=== PATIENT | female | born 1990 | race Caucasian/White ===

== ENCOUNTER 2016-04-25 11:19 | Emergency (ER) | payer OTHER ==
[2016-04-25 11:26] VITALS: BP 139/84; PULSE 96; TEMP 98.1; BMI 43.8
--- NOTE | 2016-04-25 11:38 | PDOC ---
History of Present Illness - General Chief Complaint: Pain Stated Complaint: LEFT RIBCAGE PAIN Time Seen by Provider: 04/25/16 11:21 History Source: Patient Exam Limitations: No Limitations - History of Present Illness Initial Comments: 04/25/16 11:37 This is a 25 yo F presenting to the ER with a complaint of rib cage pain. Pt reports left midaxial chest wall pain x 3-4 days. Pt awoke with her symptoms, states pain is worse with deep breath Pain is positional No recent cough or cold symptoms No chest pain, jaw, arm pain No sob No fevers or chills No ill contacts No neck swelling No trauma PMH: Pseudotumor PSH: denies Meds:Diamox ALL: NKDA Social: GENERAL/CONSTITUTIONAL: No: fever, chills, weakness, loss of appetite. HEAD, EYES, EARS, NOSE AND THROAT: No: Throat pain CARDIOVASCULAR: Yes: chest wall pain No: lightheadedness, palpitations, syncope RESPIRATORY: No: cough, shortness of breath, wheezing, hemoptysis, stridor. GASTROINTESTINAL: No: nausea, vomiting, diarrhea, abdominal cramping, rectal bleeding, constipation. GENITOURINARY: No: dysuria, hematuria, frequency, urgency, flank pain. MUSCULOSKELETAL: Yes: chest wall pain No: back pain, neck pain SKIN: No: lesions, pallor, rash or easy bruising. NEUROLOGIC: No: headache, vertigo, paresthesias, weakness ENDOCRINE: No: unexplained weight gain or loss HEMATOLOGIC/LYMPHATIC: No: anemia, easy bleeding, swelling nodes. GENERAL: The patient is in no acute distress. HEAD: Normal with no signs of trauma. EYES: PERRLA, EOMI, sclera anicteric, conjunctiva clear. ENT: Ears normal, nares patent, oropharynx clear without exudates. Moist mucous membranes. NECK: Normal range of motion, supple without lymphadenopathy, JVD, or masses. LUNGS: Breath sounds equal, clear to auscultation bilaterally. No wheezes, and no crackles. HEART:Regular rate and rhythm, normal S1 and S2 without murmur, rub or gallop. ABDOMEN: Soft, nontender, normoactive bowel sounds. No guarding, no rebound. No masses palpable. EXTREMITIES: Normal range of motion, no edema. No clubbing or cyanosis. No erythema, or tenderness. NEUROLOGICAL: Cranial nerves II through XII grossly intact. Normal speech. No focal neurological deficits. MUSCULOSKELETAL: Chest wall non tender to palpation SKIN: Warm, Dry, normal turgor, no rashes or lesions noted. 04/25/16 11:38 04/25/16 11:50 04/25/16 11:57 Past History - Past Medical History Allergies/Adverse Reactions: Allergies Allergy/AdvReac Type Severity Reaction Status Date / Time gluten Allergy Verified 04/25/16 11:20 No Known Drug Allergies Allergy Verified 04/25/16 11:20 Home Medications: Ambulatory Orders Acetazolamide [Diamox -] 150 mg PO BID 04/25/16 Methocarbamol [Robaxin -] 500 mg PO TID PRN #21 tablet 04/25/16 Naproxen [Naprosyn -] 500 mg PO BID PRN #14 tablet 04/25/16 Anemia: No Asthma: No Cancer: No Cardiac Disorders: No CVA: No COPD: No CHF: No Dementia: No Diabetes: No GI Disorders: No Disorders: No HTN: No Hypercholesterolemia: No Liver Disease: No Seizures: No Thyroid Disease: No Other medical history: PSEUDOTUMOR - Surgical History Abdominal Surgery: No Appendectomy: No Cardiac Surgery: No Cholecystectomy: No Lung Surgery: No Neurologic Surgery: No Orthopedic Surgery: No - Psycho/Social/Smoking Cessation Hx Anxiety: No Suicidal Ideation: No Smoking History: Current some day smoker Have you smoked in the past 12 months: Yes Number of Cigarettes Smoked Daily: 1 If you are a former smoker, when did you quit?: 1 YEAR AGO Information on smoking cessation initiated: Yes 'Breaking Loose' booklet given: 04/25/16 Hx Alcohol Use: No Drug/Substance Use Hx: No *Physical Exam - Vital Signs Last Vital Signs Temp Pulse Resp BP Pulse Ox 98.1 F 96 H 18 139/84 100 04/25/16 11:20 04/25/16 11:20 04/25/16 11:20 04/25/16 11:20 04/25/16 11:20 Medical Decision Making - Medical Decision Making 04/25/16 11:59 Pt is low risk wells: No Clinical signs/symptoms of DVT, PE is not the number 1 diagnosis, Heart rate < 100, No Immobilization at least 3 days OR surgery in the Previous 4 weeks, No diagnosed PE or DVT, No Hemoptysis, No Malignancy w/ treatment within 6 months or palliative Perc negative : Age < 50, HR < 100, O2 Sat on room air > 95%, No p rior history of DVT/PE, No recent trauma or surgery, No Hemoptysis, No Exogenous estrogen, No unilateral leg swelling No risk factors or exertional symptoms to suggest Cardiac ischemia Will check Hcg Will do CXR Will give motrin 04/25/16 13:14 CXR negative I have explained to patient that we can send a D dimer now Pt is not concerned about additional blood test or imaging Pt states she would like to go home I have ordered her pain medications Follow up with Dr Araujo Return to the ER for any other concerns or complaints *DC/Admit/Observation/Transfer Diagnosis at time of Disposition: Chest pain Qualifiers: Chest pain type: unspecified Qualified Code(s): R07.9 - Chest pain, unspecified - Discharge Dispostion Disposition: HOME Condition at time of disposition: Improved Admit: No - Prescriptions Prescriptions: Naproxen [Naprosyn -] 500 mg PO BID PRN #14 tablet PRN Reason: Pain Methocarbamol [Robaxin -] 500 mg PO TID PRN #21 tablet PRN Reason: Pain - Patient Instructions Printed Discharge Instructions: DI for Atypical Chest Pain, DI for Chest Pain Additional Instructions: Inga Thank you for coming in to the ER today Please return to the ER for any other concerns or complains Follow up with Dr Araujo within 1 week
[2016-04-25] MEDS ORDERED: IBUPROFEN 600 MG TABLET (FP) PO ONE ×2 (12:12→12:20)
[2016-04-25 12:14] LABS: PH,URINE 7.5 (4.5-8); URINE BILIRUBIN Negative (NEGATIVE); URINE BLOOD Negative (NEGATIVE); URINE GLUCOSE (UA) Negative (NEGATIVE); URINE KETONE Negative (NEGATIVE); URINE NITRITE Negative (NEGATIVE); URINE PROTEIN Trace (NEGATIVE); URINE UROBILINOGEN 0.2 E.U/dl (0.2-1.0)
[2016-04-25 12:15] LABS: URINE APPEARANCE CLOUDY; URINE COLOR YELLOW
[2016-04-25 12:17] LABS: URINE LEUK ESTERASE TRACE (NEGATIVE)
[2016-04-25 12:43] LABS: URINE BACTERIA FEW /hpf (NEGATIVE); URINE HYALINE CAST 0-3 /lpf; URINE RBC 0-3 /hpf (0-3); URINE WBC 0-3 (3-5)
== END 2016-04-25 13:38 | disposition home or self-care (01) ==
LOC: FER 11:19
DX: R07.9 Chest pain, unspecified (principal); F17.210 Nicotine dependence, cigarettes, uncomplicated
CPT/HCPCS: 71020-TC; 81003; 81015; 84703; 87086; 99284-25

== ENCOUNTER 2016-09-16 10:45 | Inpatient (IN) | payer MEDICARE, OTHER ==
[2016-09-16] MEDS ORDERED: FAMOTIDINE 20 MG/50 ML IVPB 50 ML IVPB ONE (10:47)
[2016-09-16] MEDS ORDERED: ONDANSETRON 4 MG/2 ML VIAL IVPUSH ONE (10:47)
[2016-09-16] MEDS ORDERED: morphine CARPU-JECT 4 MG/1 ML DISP.SYRIN IVPUSH ONE ×2 (10:47→11:19)
[2016-09-16] MEDS ORDERED: SODIUM CHLORIDE 1,000 ML IV STA ×2 (10:47→13:23)
--- NOTE | 2016-09-16 10:47 | PDOC ---
History of Present Illness - General History Source: Patient Exam Limitations: No Limitations - History of Present Illness Initial Comments: 25 yo F history gluten intolerance, GERD presents with abrupt onset epigastric abdominal pain, N/V since the middle of the night. She has vomited multiple times nonbilious, nonbloody. She has had epigastric pain in the past when she eats gluten, but this is different. The pain is much more severe, and she has vomited multiple times. Denies f/c, diarrhea. No recent illness, no bad food ingestion, no sick contacts. <Whit Hernandes - Last Filed: 09/16/16 15:23> <Macy Valdez - Last Filed: 09/16/16 15:25> - General Chief Complaint: Pain Stated Complaint: ABD PAIN Time Seen by Provider: 09/16/16 10:47 Past History - Past Medical History Anemia: No Asthma: No Cancer: No Cardiac Disorders: No CVA: No COPD: No CHF: No Dementia: No Diabetes: No GI Disorders: No Disorders: No HTN: No Hypercholesterolemia: No Liver Disease: No Seizures: No Thyroid Disease: No - Surgical History Abdominal Surgery: No Appendectomy: No Cardiac Surgery: No Cholecystectomy: No Lung Surgery: No Neurologic Surgery: No Orthopedic Surgery: No - Psycho/Social/Smoking Cessation Hx Anxiety: No Suicidal Ideation: No Smoking History: Current some day smoker Have you smoked in the past 12 months: Yes Number of Cigarettes Smoked Daily: 1 If you are a former smoker, when did you quit?: 1 YEAR AGO 'Breaking Loose' booklet given: 04/25/16 Hx Alcohol Use: No Drug/Substance Use Hx: No <Whit Hernandes - Last Filed: 09/16/16 15:23> <Macy Valdez - Last Filed: 09/16/16 15:25> - Past Medical History Allergies/Adverse Reactions: Allergies Allergy/AdvReac Type Severity Reaction Status Date / Time gluten Allergy Verified 09/16/16 10:46 No Known Drug Allergies Allergy Verified 09/16/16 10:46 Home Medications: Ambulatory Orders Acetazolamide [Diamox -] 450 mg PO BID 04/25/16 Review of Systems - Review of Systems Able to Perform ROS?: Yes Comments:: GENERAL/CONSTITUTIONAL: No fever or chills. No weakness. HEAD, EYES, EARS, NOSE AND THROAT: No change in vision. No ear pain or discharge. No sore throat. CARDIOVASCULAR: No chest pain or shortness of breath. RESPIRATORY: No cough, wheezing, or hemoptysis. GASTROINTESTINAL: +Nausea, vomiting. No diarrhea or constipation. GENITOURINARY: No dysuria, frequency, or change in urination. MUSCULOSKELETAL: No joint or muscle swelling or pain. No neck or back pain. SKIN: No rash NEUROLOGIC: No headache, vertigo, loss of consciousness, or change in strength/ sensation. ENDOCRINE: No increased thirst. No abnormal weight change. HEMATOLOGIC/LYMPHATIC: No anemia, easy bleeding, or history of blood clots. ALLERGIC/IMMUNOLOGIC: No hives or skin allergy. <Whit Hernandes - Last Filed: 09/16/16 15:23> *Physical Exam - Physical Exam Comments: GENERAL: Awake, alert, and fully oriented, appears in obvious pain. HEAD: No signs of trauma EYES: PERRLA, EOMI, sclera anicteric, conjunctiva clear ENT: Auricles normal inspection, hearing grossly normal, nares patent, oropharynx clear without exudates. Dry mucosa NECK: Normal ROM, supple, no lymphadenopathy, JVD, or masses LUNGS: Breath sounds equal, clear to auscultation bilaterally. No wheezes, and no crackles HEART: Regular rate and rhythm, normal S1 and S2, no murmurs, rubs or gallops ABDOMEN: Soft, tender to epigastric area with guarding, no rebound. + Hyperactive bowel sounds. No masses EXTREMITIES: Normal range of motion, no edema. No clubbing or cyanosis. No cords, erythema, or tenderness NEUROLOGICAL: Cranial nerves II through XII grossly intact. Normal speech, normal gait SKIN: Cool and clammy. Normal turgor, no rashes or lesions noted. Mild pallor. <Whit Hernandes - Last Filed: 09/16/16 15:23> - Vital Signs Last Vital Signs Temp Pulse Resp BP Pulse Ox 97.4 F L 52 L 18 119/86 100 09/16/16 10:45 09/16/16 10:45 09/16/16 10:45 09/16/16 11:00 09/16/16 10:45 <Macy Valdez - Last Filed: 09/16/16 15:25> ED Treatment Course - LABORATORY CBC & Chemistry Diagram: 09/16/16 10:50 09/16/16 10:50 <Whit Hernandes - Last Filed: 09/16/16 15:23> - LABORATORY CBC & Chemistry Diagram: 09/16/16 10:50 09/16/16 10:50 - ADDITIONAL ORDERS Additional order review: Laboratory Results 09/16/16 09/16/16 10:50 10:50 Sodium 137 Potassium 4.2 Chloride 111 H Carbon Dioxide 18 L Anion Gap 8 BUN 9 Creatinine 0.9 Creat Clearance w eGFR > 60 Random Glucose 151 H Calcium 9.3 Total Bilirubin 0.8 AST 27 ALT 17 Alkaline Phosphatase 91 Total Protein 7.6 Albumin 4.2 Lipase 33 Serum , Qual Negative Urine Color Yellow Urine Appearance Clear Urine pH 8.5 H Ur Specific [place] 1.015 Urine Protein Negative Urine Glucose (UA) Negative Urine Ketones 1+ H Urine Blood Negative Urine Nitrite Negative Urine Bilirubin Negative Urine Urobilinogen 0.2 e.u/dl Ur Leukocyte Esterase Negative 09/16/16 10:50 RBC 4.87 MCV 61.7 L MCHC 30.4 L RDW 17.8 H MPV 8.4 Neutrophils % Y Lymphocytes % Y - Medications Given in the ED: ED Medications Discontinued Medications Generic Name Dose Route Start Last Admin Trade Name Freq PRN Reason Stop Dose Admin Famotidine/Sodium Chloride 50 mls @ 100 mls/hr 09/16/16 10:47 09/16/16 11:04 Pepcid 20 Mg Premixed Ivpb - IVPB 09/16/16 11:16 100 mls/hr ONCE ONE Administration Sodium Chloride 1,000 mls @ 1,000 mls/hr 09/16/16 10:47 09/16/16 11:00 Normal Saline - IV 09/16/16 11:46 1,000 mls/hr ASDIR STA Administration Sodium Chloride 1,000 mls @ 1,000 mls/hr 09/16/16 13:23 09/16/16 13:25 Normal Saline - IV 09/16/16 14:22 1,000 mls/hr ASDIR STA Administration Morphine Sulfate 4 mg 09/16/16 10:47 09/16/16 11:00 Morphine Injection - IVPUSH 09/16/16 10:48 4 mg ONCE ONE Administration Morphine Sulfate 4 mg 09/16/16 11:19 07/11/17 11:22 Morphine Injection - IVPUSH 09/16/16 11:20 4 mg ONCE ONE Administration Ondansetron HCl 4 mg 09/16/16 10:47 09/16/16 10:55 Zofran Injection IVPUSH 09/16/16 10:48 4 mg ONCE ONE Administration <Macy Valdez - Last Filed: 09/16/16 15:25> Medical Decision Making - Medical Decision Making 09/16/16 11:38 Noted to have leukocytosis on CBC. Will prepare to obtain CT. 09/16/16 13:22 Pt states pain has improved. Awaiting CT. <Whit Hernandes - Last Filed: 09/16/16 15:23> - Medical Decision Making 09/16/16 15:24 Dr. Romeo was paged at his office requesting a call back for surgical consult on this patient at 15:12 Dr. Romeo returned the call and the patient's case was discussed at 15:20 <Macy Valdez - Last Filed: 09/16/16 15:25> *DC/Admit/Observation/Transfer - Discharge Dispostion Admit: Yes <Whit Hernandes - Last Filed: 09/16/16 15:23> <Macy Valdez - Last Filed: 09/16/16 15:25> Diagnosis at time of Disposition: Appendicitis, acute Qualifiers: Acute appendicitis type: with localized peritonitis Qualified Code(s): K35.3 - Acute appendicitis with localized peritonitis - Discharge Dispostion Condition at time of disposition: Stable
[2016-09-16 11:19] LABS: MCHC 30.4 g/dl (32.0-36.0); MEAN CELL VOLUME 61.7 fl (80-96); MEAN PLT VOLUME 8.4 fl (7.5-11.1); PLATELET COUNT 247 K/MM3 (134-434); RDW 17.8 % (11.6-15.6); WHITE BLOOD COUNT 17.4 K/mm3 (4.0-10.8)
[2016-09-16 11:20] LABS: MCH 18.8 pg (25.7-33.7)
[2016-09-16 11:35] LABS: ALBUMIN 4.2 g/dl (3.5-5.0); ALK PHOS 91 U/L (32-92); ANION GAP 8 (8-16); BILIRUBIN,TOTAL 0.8 mg/dl (0.2-1.0); CALCIUM 9.3 mg/dl (8.4-10.2); CO2 18 mmol/L (22-28); CREATININE 0.9 mg/dl (0.6-1.3); GLUCOSE,RANDOM 151 mg/dl (74-106); SGOT/AST 27 U/L (10-42); SGPT/ALT 17 U/L (10-40); TOT PROT 7.6 g/dl (6.4-8.3)
[2016-09-16 12:34] LABS: PH,URINE 8.5 (4.5-8); URINE APPEARANCE Clear; URINE BILIRUBIN Negative (NEGATIVE); URINE BLOOD Negative (NEGATIVE); URINE COLOR YELLOW; URINE GLUCOSE (UA) Negative (NEGATIVE); URINE KETONE 1+ (NEGATIVE); URINE LEUK ESTERASE Negative (NEGATIVE); URINE NITRITE Negative (NEGATIVE); URINE PROTEIN Negative (NEGATIVE); URINE UROBILINOGEN 0.2 E.U/dl (0.2-1.0)
[2016-09-16] MEDS ORDERED: PIPERACILLIN/TAZOB 3.375 GM 3.375 GM in DEXTROSE 5%-WATER - 50 ML IVPB ONE (15:13)
[2016-09-16] MEDS ORDERED: PIPERACILLIN/TAZOBACTAM 3.375 GM VIAL IVPB ONE (15:17)
[2016-09-16] MEDS ORDERED: morphine CARPU-JECT 4 MG/1 ML DISP.SYRIN IVPUSH PRN (15:24)
[2016-09-16] MEDS ORDERED: SODIUM CHLORIDE 1,000 ML IV SCH (15:30)
[2016-09-16] MEDS ORDERED: MIDAZOLAM HCL 2 MG/2 ML SINGLE DOSE VIAL ONE (16:16)
[2016-09-16] MEDS ORDERED: SUCCINYLCHOLINE CHLORIDE 200 MG/10 ML VIAL ONE (16:16)
[2016-09-16] MEDS ORDERED: LIDOCAINE HCL 2% JELLY (5 ML/TUBE) ONE (16:16)
[2016-09-16] MEDS ORDERED: LIDOCAINE HCL/PF 2% SDV 5ML VIAL ONE (16:16)
[2016-09-16] MEDS ORDERED: PROPOFOL 20 ML ONE (16:16)
[2016-09-16] MEDS ORDERED: ROCURONIUM BROMIDE 50 MG/5 ML VIAL ONE (16:17)
[2016-09-16] MEDS ORDERED: LIDOCAINE HCL 1%, 10 MG/ML (20ML VIAL) ONE (16:20)
[2016-09-16] MEDS ORDERED: BUPIVACAINE HCL/PF 0.5% (5MG/ML) 10 ML VIAL ONE (16:20)
[2016-09-16 16:41] LABS: INR 1.15 (0.82-1.09); PROTHROMBIN TIME (PATIENT) 12.8 SEC (10.2-13.0)
--- NOTE | 2016-09-16 17:40 | HP ---
Admitting History and Physical - Admission History of Present Illness: The patient is a 25 yo female with a history of celiac disease. She awoke last pm with acute abdominal pain in her upper to umbilical region. The patient sates that she occasionally feels this way if she eats gluten, so she made herself vomit. The pain persisted after vomiting and taking tylenol. She felt fever and chills and also has had some diarrhea(loose/nonbloody) x 2. No painful urination or bloody urine. 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 No: Migraine, Seizure Cardiovascular: No: Deep Vein Thrombosis, HTN Gastrointestinal: Yes: Pancreatitis, Other (celiac disease). 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) - Smoking History Smoking history: Current some day smoker Have you smoked in the past 12 months: Yes Aproximately how many cigarettes per day: 1 If you are a former smoker, when did you quit?: 1 YEAR AGO - Alcohol/Substance Use Hx Alcohol Use: No <Hamida Bernardo - Last Filed: 09/16/16 17:53> Home Medications <Hamida Bernardo - Last Filed: 09/16/16 17:53> <Cornel Romeo - Last Filed: 09/16/16 20:03> - Allergies Allergies/Adverse Reactions: Allergies Allergy/AdvReac Type Severity Reaction Status Date / Time gluten Allergy Verified 09/16/16 10:46 No Known Drug Allergies Allergy Verified 09/16/16 10:46 - Home Medications Home Medications: Ambulatory Orders Acetazolamide [Diamox -] 450 mg PO BID 04/25/16 Review of Systems - Review of Systems Constitutional: reports: Chills, Fever Eyes: reports: Other (residual peripheral vision field loss from pseudotumor cerebri). denies: Blurred Vision Neck: denies: Lumps, Pain on Movement Cardiovascular: denies: Chest Pain, Edema, Palpitations Respiratory: reports: Other (sleep apea-not on c pap, was evaluated when having gastric bypass eval for surgery). denies: Cough, SOB Gastrointestinal: reports: Abdominal Pain, Diarrhea. denies: Constipation, Nausea Genitourinary: denies: Burning, Dysuria, Hematuria Musculoskeletal: denies: Back Pain, Extremity Pain, Joint Swelling Neurological: denies: Dizziness, Headache Hematology/Lymphatic: denies: Easily Bruised, Excessive Bleeding <Metzen,Hamida - Last Filed: 09/16/16 17:53> Physical Examination Vital Signs: Vital Signs Temperature 97.8 F 09/16/16 16:00 Pulse Rate 78 09/16/16 16:00 Respiratory Rate 16 09/16/16 16:00 Blood Pressure 108/65 09/16/16 16:00 O2 Sat by Pulse Oximetry (%) 97 09/16/16 16:00 Constitutional: Yes: Well Nourished, Calm Eyes: Yes: Conjunctiva Clear. No: Sclera Icterus HENT: Yes: WNL, Atraumatic, Normocephalic Neck: Yes: WNL, Supple, Trachea Midline Cardiovascular: Yes: WNL, Regular Rate and Rhythm Respiratory: Yes: WNL, Regular, CTA Bilaterally Gastrointestinal: Yes: Soft, Abdomen, Obese, Tenderness (right lower quadrant with palpation. positive rosving.). No: Palpable Mass Renal/: No: CVA Tenderness - Left, CVA Tenderness - Right Extremities: No: Calf Tenderness Edema: No Peripheral Pulses WNL: Yes Peripheral Pulses: Left Doralis Pedis: 2+, Right Dorsalis Pedis: 2+, Left Femoral: 2+, Right Femoral: 2+ Neurological: Yes: WNL, Alert, Oriented ...Motor Strength: LUE, LLE, RUE, RLE Psychiatric: Yes: WNL, Alert, Oriented Labs: CBC, BMP 09/16/16 10:50 09/16/16 10:50 INR, PTT INR 1.15 (0.82-1.09) 09/16/16 15:40 Laboratory Tests 09/16/16 10:50 Serum , Qual Negative Urine Color Yellow Urine Appearance Clear Urine pH 8.5 H Ur Specific [place] 1.015 Urine Protein Negative Urine Glucose (UA) Negative Urine Ketones 1+ H Urine Blood Negative Urine Nitrite Negative Urine Bilirubin Negative Urine Urobilinogen 0.2 e.u/dl Ur Leukocyte Esterase Negative <Hamida Bernardo - Last Filed: 09/16/16 17:53> Vital Signs: Vital Signs Temperature 97.8 F 09/16/16 16:00 Pulse Rate 78 09/16/16 16:00 Respiratory Rate 16 09/16/16 16:00 Blood Pressure 108/65 09/16/16 16:00 O2 Sat by Pulse Oximetry (%) 97 09/16/16 16:45 <Cornel Romeo - Last Filed: 09/16/16 20:03> Imaging - Results Cat Scan: Other (CT scan : acute appendicitis, no extraluminal air/abscess) <Hamida Bernardo - Last Filed: 09/16/16 17:53> Problem List - Problems (1) Appendicitis, acute Assessment/Plan: Plan for OR tonight, D/w Dr. Romeo. The patient remains npo. IV zosyn given at 1550 SCDs for DVT ppx Code(s): K35.80 - UNSPECIFIED ACUTE APPENDICITIS Qualifiers: Acute appendicitis type: with localized peritonitis Qualified Code(s ): K35.3 - Acute appendicitis with localized peritonitis <Hamida Bernardo - Last Filed: 09/16/16 17:53> Assessment/Plan Agree Acute appendicitis NPO IV fluids Antibiotics Laparoscopic possible open appendectomy <Cornel Romeo - Last Filed: 09/16/16 20:03>
[2016-09-16 17:42] VITALS: BMI 42.2
[2016-09-16] MEDS ORDERED: ONDANSETRON 4 MG/2 ML VIAL IVPUSH PRN (17:58)
[2016-09-16] MEDS ORDERED: LACTATED RINGERS SOLUTION 1,000 ML IV SCH (18:00)
[2016-09-16] MEDS ORDERED: ONDANSETRON 4 MG/2 ML VIAL ONE (18:39)
[2016-09-16] MEDS ORDERED: DEXAMETHASONE SOD PHOSPHATE 4 MG/1 ML VIAL ONE (18:39)
[2016-09-16] MEDS ORDERED: ceFAZolin SODIUM 1 GM VIAL ONE (18:45)
[2016-09-16] MEDS ORDERED: GLYCOPYRROLATE 0.2 MG/1 ML VIAL ONE ×2 (19:53→19:54)
[2016-09-16] MEDS ORDERED: NEOSTIGMINE METHYLSULFATE 0.5 MG/ML - 10 ML MDV ONE (19:53)
[2016-09-16] MEDS ORDERED: KETOROLAC TROMETHAMINE 30 MG/1 ML VIAL ONE (20:05)
[2016-09-16] MEDS ORDERED: ACETAMINOPHEN 325 MG TABLET (FP) PO PRN (20:05)
[2016-09-16] MEDS ORDERED: ONDANSETRON 4 MG/2 ML VIAL IVPB PRN (20:05)
--- NOTE | 2016-09-16 20:09 | OP ---
Operative Note - Note: Operative Date: 09/16/16 Pre-Operative Diagnosis: Acute appendicitis Operation: Laparoscopic appendectomy Findings: Perforated appendicitis Post-Operative Diagnosis: Other (Acute perforated appendicitis) Surgeon: Cornel Romeo Anesthesia: General Specimens Removed: Appendix Estimated Blood Loss (mls): 5 Operative Report Dictated: Yes
[2016-09-16] MEDS ORDERED: HYDROmorphone HCL CARPU-JECT 1 MG/1 ML DISP.SYRIN ONE (20:11)
[2016-09-16] MEDS ORDERED: D5-1/2NS+20 MEQ KCL - 1,000 ML IV SCH (20:15)
[2016-09-16] MEDS ORDERED: PROMETHAZINE HCL 25 MG/1 ML VIAL ONE (20:18)
[2016-09-16] MEDS ORDERED: HYDROmorphone HCL CARPU-JECT 1 MG/1 ML DISP.SYRIN IVPUSH PRN (20:20)
[2016-09-17] MEDS: HYDROmorphone HCL CARPU-JECT 1 MG/1 ML DISP.SYRIN IVPB PRN ×4 (00:15→14:20)
[2016-09-17] MEDS: PIPERACILLIN/TAZOB 3.375 GM/50 ML PRE-DOCKED IVPB SCH ×2 (01:35→09:09)
--- NOTE | 2016-09-17 07:20 | PN ---
Progress Note (short form) - Note Progress Note: POD #1 Alert. Resting in position of comfort. States she got out of bed an ambulated unassisted to the bathroom. Voiding spontaneously. C/o incisional tenderness but pain controlled well via PRN meds. Tolerating sips. Denies n/v/f/c/d, CP or SOB. VSS. Afebrile. PE General: NAD Abd: obese. soft. all surgical ports intact. No hematoma. LE: Soft. NT b/l Problem List - Problems (1) Appendicitis, acute Assessment/Plan: POD #1 s/p Laparocopic appendectomy (perforated) 1. Cont IV ABX 2. Pain management PRN 3. Tylenol for fever > 100.3F 4. Cont OOB and ambulate 5. Gluten free diet 6. DC planning 09/18 Code(s): K35.80 - UNSPECIFIED ACUTE APPENDICITIS Qualifiers: Acute appendicitis type: with localized peritonitis Qualified Code(s): K35.3 - Acute appendicitis with localized peritonitis
[2016-09-17 09:08] LABS: ANION GAP 6 (8-16); CALCIUM 8.9 mg/dl (8.4-10.2); CO2 22 mmol/L (22-28); CREATININE 0.7 mg/dl (0.6-1.3); GLUCOSE,RANDOM 144 mg/dl (74-106)
[2016-09-17 09:10] LABS: MCHC 30.7 g/dl (32.0-36.0); MEAN CELL VOLUME 61.2 fl (80-96); MEAN PLT VOLUME 8.4 fl (7.5-11.1); PLATELET COUNT 254 K/MM3 (134-434); RDW 18.1 % (11.6-15.6); WHITE BLOOD COUNT 16.2 K/mm3 (4.0-10.8)
[2016-09-17 09:34] LABS: MCH 18.8 pg (25.7-33.7)
--- NOTE | 2016-09-17 10:23 | EKG ---
Test Reason : Blood Pressure : / mmHG Vent. Rate : 064 BPM Atrial Rate : 064 BPM P-R Int : 134 ms QRS Dur : 084 ms QT Int : 410 ms P-R-T Axes : 042 049 031 degrees QTc Int : 422 ms NORMAL SINUS RHYTHM NORMAL ECG NO PREVIOUS ECGS AVAILABLE Confirmed by MAYTE GILLILAND MD ([id number]) on 09/17/2016 10:23:16 AM Referred By: ELIE DHILLON Confirmed By:MAYTE GILLILAND MD
--- NOTE | 2016-09-17 10:49 | SPEC ---
DATE OF OPERATION: 09/16/2016 SURGEON: Zee Romeo MD PREOPERATIVE DIAGNOSIS: Acute appendicitis. POSTOPERATIVE DIAGNOSIS: Perforated acute appendicitis. PROCEDURE: Laparoscopic appendectomy. SPECIMEN: Appendix. ESTIMATED BLOOD LOSS: 5 mL. DRAINS: None. ANESTHESIA: GET. REASON FOR PROCEDURE: This 25-year-old female presented to the hospital with abdominal pain. She was found to have evidence of acute appendicitis on CT scan as well as an elevated white blood cell count and right lower quadrant pain. For this, she was consented for a laparoscopic possible open appendectomy. RISKS AND BENEFITS: The risks and benefits were explained for a laparoscopic, possible open appendectomy. These included bleeding, infection, hernia, WI, DVT, PE, injury to surrounding structures including the liver, colon, bowel, bladder, ureter, vessel injury, nerve injury, abscess formation, staple line leak, staple line dehiscence as some of the possible complications. The patient understood and signed informed consent. DESCRIPTION OF PROCEDURE: The patient was placed supine on the operating room table. The patient underwent general endotracheal intubation. A Aranda catheter was inserted by the nursing staff. The abdomen was prepped and draped in the usual sterile fashion. A timeout was performed. A periumbilical incision was made and a 5-mm optical trocar was inserted under direct visualization with the laparoscope. Pneumoperitoneum was then established. Subsequently, a 5-mm trocar was placed in the suprapubic area and a 12-mm trocar placed in the left lower quadrant. The patient was placed in Trendelenburg right side up position. After meticulous dissection, the appendix was identified. The appendix was freed from its surrounding structures and the appendix was retracted to the anterior abdominal wall. The base of the appendix was identified. A window was created within the mesentery near the base of the appendix. The appendix at its base was stapled using a laparoscopic Endo-VLADIMIR stapler with a white load. The mesoappendix was then transected using a laparoscopic Endo-VLADIMIR stapler with a white load. The appendix was placed in an EndoCatch bag. Inspection of both staple lines was identified. The staple line at the base of the appendix was noted to be fully intact. Hemostasis was noted at the staple line of the mesoappendix. Copious irrigation and suction was performed. The appendix was removed from the abdominal cavity and sent off the operative field as specimen. The patient was then placed in left side up position. The 12-mm trocar was removed. The fascia at this site was closed using a 0 Vicryl suture with a Rancho-Greyson device. The patient was then placed supine. Pneumoperitoneum was desufflated and all further trocars were removed. All incision sites were irrigated and Marcaine was injected at all incision sites. The fascial suture was secured. All incision sites were closed using 4-0 Biosyn. Sterile dressings were applied. The patient tolerated the procedure well. The Aranda catheter was removed and the patient was transferred to the recovery room in stable condition. Of note, perforation was noted of the appendix and purulent fluid noted in the right paracolic gutter and pelvis, which was suctioned. Because of this, she was continued on IV antibiotics postoperatively. ZEE ROMEO M.D. [id number]
--- NOTE | 2016-09-17 11:27 | PN ---
Progress Note (short form) - Note Progress Note: 25F POD1 s/p lap appendectomy under GA-ETT doing well. Pt states that pain is well controlled, is tolerating po well, and does not report any anesthetic complications.
[2016-09-17] MEDS: PIPERACILLIN/TAZOB 3.375 GM 50 ML IVPB SCH (17:56)
[2016-09-17] MEDS ORDERED: PT OWN MED DRAWER 7, Y5N ONE (21:25)
[2016-09-18] MEDS: PIPERACILLIN/TAZOB 3.375 GM 50 ML IVPB SCH ×2 (01:43→09:40)
[2016-09-18 05:53] VITALS: BP 131/68; PULSE 64; TEMP 97.6
--- NOTE | 2016-09-18 08:17 | PN ---
Progress Note (short form) - Note Progress Note: POD#2 Pt had small bm this am with flatus. Nausea improved since yesterday. Tolerating a regular diet but overall lack of appetite. Vital Signs Period Temp Pulse Resp BP Sys/Rg Pulse Ox Last 24 Hr 97.6 F-98.1 F 53-64 16-20 116-142/68-89 97-100 GEN: appears comfortable ABD: soft, non-distended, inc tenderness. Inc c/d/i LE: no calf tenderness or swelling noted b/l CBC, BMP //17 09:36 07//17 07:39 Problem List - Problems (1) Appendicitis, acute Assessment/Plan: s/p lap appy, POD#2 doing well oob/ambulating, tolerating a diet leukocytosis improved, plan for discharge to home today. S/w Dr. Romeo and she is stable for discharge. Will go home with pain medication, oral antibiotics Code(s): K35.80 - UNSPECIFIED ACUTE APPENDICITIS Qualifiers: Acute appendicitis type: with localized peritonitis Qualified Code(s): K35.3 - Acute appendicitis with localized peritonitis
[2016-09-18 10:31] LABS: MEAN PLT VOLUME 8.4 fl (7.5-11.1)
[2016-09-18 10:38] LABS: BASOPHIL 0.4 % (0-2.0); EOSINOPHIL 0.8 % (0-4.5); MCHC 30.3 g/dl (32.0-36.0); MEAN CELL VOLUME 62.2 fl (80-96); NEUTROPHILS 71.7 % (42.8-82.8); PLATELET COUNT 250 K/MM3 (134-434); RDW 18.4 % (11.6-15.6); WHITE BLOOD COUNT 13.3 K/mm3 (4.0-10.8)
[2016-09-18 10:58] LABS: MCH 18.8 pg (25.7-33.7)
--- NOTE | 2016-09-19 14:13 | PATH ---
Surgical Pathology Report Patient Name: EDUARDO CAN [place]. Rec. #: [id number] /Age/Gender: 1990 (Age: 25) / F Account: [id number] Location: [facility] Taken: 09/16/2016 Received: 09/17/2016 Reported: 09/19/2016 Physicians: Cornel Romeo M.D. Specimen(s) Received APPENDIX Clinical History Acute appendicitis Final Diagnosis APPENDIX, APPENDECTOMY: ACUTE APPENDICITIS AND PERIAPPENDICITIS. Electronically Signed Clifford Hoskins M.D. Gross Description Received in formalin, labeled "appendix," is a 4.5 cm. in length vermiform appendix with a stapled margin of resection and moderate attached fat. The serosa is avelar-finn with attached exudate. Sectioning reveals a focally dilated, hemorrhagic lumen. The wall of the appendix averages 0.2 cm. in thickness. Information Technology Analyst sections are submitted in one cassette. 09/18/201609/18/2016
== END 2016-09-18 14:00 | disposition home or self-care (01) | DRG 225 ==
LOC: FER 10:45 → FM/S 16:45
PROVIDERS: ADMIT Surgery; ATTEND Surgery
PROC: 0DTJ4ZZ Resection of Appendix, Percutaneous Endoscopic Approach (ICD-10-PCS; principal; 2016-09-16 18:57)
DX: K35.3 Acute appendicitis with localized peritonitis (principal); Z72.0 Tobacco use; K90.41 Non-celiac gluten sensitivity; E66.9 Obesity, unspecified; Z68.41 Body mass index [BMI] 40.0-44.9, adult
CPT/HCPCS: 36415; 74177-TC; 80048; 80053; 81003; 83690; 84703; 85025; 85027; 85610; 86850; 86900; 86901; 88304-TC; 93005; 94010; 94760; 99285-25

== ENCOUNTER 2017-03-19 19:19 | Emergency (ER) | payer OTHER ==
[2017-03-19 19:22] VITALS: BP 136/76; PULSE 77; TEMP 98.6; BMI 39.1
--- NOTE | 2017-03-19 20:41 | PDOC ---
History of Present Illness - General History Source: Patient Exam Limitations: No Limitations - History of Present Illness Initial Comments: 03/19/17 21:05 The patient is a 26 year old female with pseudotumor cerebri (currently not on medications) who presents to the ED with complaints of right knee pain that began last night. She denies any injury to the area or fall. She reports pain is worse upon ambulation. The patient reports taking 440mg of Naproxen today and did not receive relief of the pain. She denies any fevers, chills, nausea, vomiting, diarrhea, cough, SOB, or urinary symptoms. She denies being in tall, grassy or wooded areas over the summer and fall. PAST MEDICAL HISTORY: no significant history PAST SURGICAL HISTORY: no significant history FAMILY HISTORY: no pertinent history SOCIAL HISTORY: Pt lives with family and is employed. MEDICATIONS: reviewed ALLERGIES: As per nursing notes ROS General: No fevers or chills, no weakness, no weight loss HEENT: No change in vision. No sore throat,. No ear pain CardioVascular: No chest pain or shortness of breath Respiratory:No cough, or wheezing. Gastrointestinal: no nausea, vomiting, diarrhea or constipation, No rectal bleeding Genitourinary: No dysuria, hematuria, or frequency Musculoskeletal: Present: right knee pain No joint or muscle pain or swelling Neurologic: No headache, vertigo, dizziness or loss of consciousness Psychiatric: nor depression Skin: No rashes or easy bruising Endocrine: no increased thirst or abnormal weight change Allergic: no skin or latex allergy All other systems reviewed and normal PE GENERAL: The patient is awake, alert, and fully oriented, in no acute distress. HEAD: Normal with no signs of trauma. EYES: Pupils equal, round and reactive to light, extraocular movements intact, sclera anicteric, conjunctiva clear. EXTREMITIES: Normal range of motion, no edema. No swelling, erythema, bony tenderness, ligamentous instability. NEUROLOGICAL: Normal speech, normal gait. PSYCH: Normal mood, normal affect. SKIN: Warm, Dry, normal turgor, no rashes or lesions noted <Leesa De Leon - Last Filed: 03/19/17 21:05> - General History Source: Patient Exam Limitations: No Limitations - History of Present Illness Initial Comments: A portion of this note was documented by scribe services under my direction. I have reviewed the details of the note, within reason, and agree with the documentation. The case summary and management plan written by me. Assessment and plan: This is a 26-year-old female who comes in complaining of right knee pain 1 day. Patient denies any risk factors for arthritis or Lyme disease. Patient had a normal exam on palpation with full range of motion and no tenderness or swelling to the knee. Patient was given an anti-inflammatory ibuprofen and told to take it for one week and follow-up with her primary care doctor or an orthopedist if not improved. <Zheng Hou I - Last Filed: 03/19/17 21:44> - General Chief Complaint: Pain Stated Complaint: RT KNEE PAIN Time Seen by Provider: 03/19/17 20:06 Past History <Leesa De Leon - Last Filed: 03/19/17 21:05> - Past Medical History Anemia: No Asthma: No Cancer: No Cardiac Disorders: No CVA: No COPD: No CHF: No Dementia: No Diabetes: No GI Disorders: No Disorders: No HTN: No Hypercholesterolemia: No Liver Disease: No Seizures: No Thyroid Disease: No - Surgical History Abdominal Surgery: No Appendectomy: Yes Cardiac Surgery: No Cholecystectomy: No Lung Surgery: No Neurologic Surgery: No Orthopedic Surgery: No - Suicide/Smoking/Psychosocial Hx Smoking History: Never smoked Have you smoked in the past 12 months: Yes Number of Cigarettes Smoked Daily: 1 If you are a former smoker, when did you quit?: 1 YEAR AGO 'Breaking Loose' booklet given: 04/25/16 Hx Alcohol Use: No Drug/Substance Use Hx: No <Zheng Hou I - Last Filed: 03/19/17 21:44> - Past Medical History Allergies/Adverse Reactions: Allergies Allergy/AdvReac Type Severity Reaction Status Date / Time gluten Allergy Verified 09/16/16 10:46 No Known Drug Allergies Allergy Verified 09/16/16 10:46 Home Medications: Ambulatory Orders Ibuprofen [Motrin -] 600 mg PO TID #21 tablet 03/19/17 Review of Systems - Review of Systems Able to Perform ROS?: Yes All Other Systems: Reviewed and Negative <Leesa De Leon - Last Filed: 03/19/17 21:05> *Physical Exam - Vital Signs Last Vital Signs Temp Pulse Resp BP Pulse Ox 98.6 F 77 16 136/76 99 03/19/17 19:20 03/19/17 19:20 03/19/17 19:20 03/19/17 19:20 03/19/17 19:20 <Leesa De Leon - Last Filed: 03/19/17 21:05> - Vital Signs Last Vital Signs Temp Pulse Resp BP Pulse Ox 98.6 F 77 16 136/76 99 03/19/17 19:20 03/19/17 19:20 03/19/17 19:20 03/19/17 19:20 03/19/17 19:20 <Zheng Hou I - Last Filed: 03/19/17 21:44> ED Treatment Course - ADDITIONAL ORDERS Additional order review: Laboratory Results 03/19/17 19:35 Urine HCG, Qual Negative <Leesa De Leon - Last Filed: 03/19/17 21:05> - ADDITIONAL ORDERS Additional order review: Laboratory Results 03/19/17 19:35 Urine HCG, Qual Negative <Zheng Hou I - Last Filed: 03/19/17 21:44> *DC/Admit/Observation/Transfer - Attestations Scribe Attestion: 03/19/17 21:08 Documentation prepared by Leesa De Leon, acting as medical accounts receivable specialist for Zheng Hou MD. <Leesa De Leon - Last Filed: 03/19/17 21:05> - Discharge Dispostion Admit: No <Zheng Hou I - Last Filed: 03/19/17 21:44> Diagnosis at time of Disposition: Knee pain, right Qualifiers: Chronicity: acute Qualified Code(s): M25.561 - Pain in right knee - Discharge Dispostion Disposition: HOME Condition at time of disposition: Stable - Prescriptions Prescriptions: Ibuprofen [Motrin -] 600 mg PO TID #21 tablet - Patient Instructions Additional Instructions: Go to the pharmacy and get your prescription for prescription strength ibuprofen and then take ibuprofen 1 tablet 3 times a day with food don't take on an empty stomach. In one week if symptoms are not improved follow-up with an orthopedist if he needed an orthopedist call Dr. Ramos at [phone] for an appointment/ Return to the emergency department immediately with ANY new, persistent or worsening symptoms. Continue any medications as previously prescribed by your physician. You should follow up with your primary doctor as soon as possible regarding today's emergency department visit. . Please make sure your doctor reviews the results of your emergency evaluation. Thank you for coming to the Emergency Department today for your care. It was a pleasure to see you today. Please note that your evaluation is INCOMPLETE until you follow-up with your doctor.
== END 2017-03-19 21:01 | disposition home or self-care (01) ==
LOC: FER 19:19
DX: M25.561 Pain in right knee (principal); G93.2 Benign intracranial hypertension
CPT/HCPCS: 84703; 99282-25